=== PATIENT | female | born 1980 | race African-American/Black ===

== ENCOUNTER 2017-07-05 13:12 | Emergency (ER) | payer OTHER ==
[~2017-07-05] VITALS: Ht 165.1 cm; Wt 168.2 kg
[2017-07-05 13:34] VITALS: BP 187/105; PULSE 103; RESP 20; TEMP 98.7; O2SAT 100
[2017-07-05] MEDS ORDERED: DICL75TA PO (14:49)
[2017-07-05] MEDS ORDERED: ROBA500T PO (14:49)
--- NOTE | 2017-07-05 14:52 | PD ---
HPI Chief Complaint: Musculoskeletal Complaint Time Seen by Provider: 14:46 Travel History International Travel<30 days: No Contact w/Intl Traveler<30days: No Traveled to known affect area: No History of Present Illness HPI 37-year-old female presents for evaluation of right-sided neck/trapezius pain. Symptoms started 4 days ago. She thinks that she may have slept on her neck wrong. She reports a stiff/sharp pain in her right neck and trapezius region which radiates down the right arm with associated paresthesias in the right hand. She denies any trauma. Denies headache, blurred vision, cough, congestion, chest pain, shortness of breath, nausea, vomiting, abdominal pain. She has no other complaints at this time. [facility] Past Medical History Medical History: Denies Significant Hx ?: Not LMP: 1 week ago Dilation and Curettage (D&C): Yes (x4 from endometriosis ) Social History Alcohol Use: Yes Tobacco Use: Yes Substance Use: No Allergies-Medications (Allergen,Severity, Reaction): Coded Allergies: No Known Allergies (Unverified , 07/05/17) Reported Meds & Prescriptions Reported Meds & Active Scripts Active Robaxin (Methocarbamol) 500 Mg Tab 500 Mg PO TID [address] (Diclofenac Sodium) 75 Mg Tabdr 75 Mg PO BID 10 Days Review of Systems Except as stated in HPI: all other systems reviewed are Neg Physical Exam Narrative GENERAL: Obese female no acute distress. SKIN: Warm and dry. No bruising or soft tissue swelling, no rash. HEAD: Atraumatic. Normocephalic. EYES: Pupils equal and round. No scleral icterus. No injection or drainage. ENT: No nasal bleeding or discharge. Mucous membranes pink and moist. NECK: Trachea midline. No JVD. CARDIOVASCULAR: Regular rate and rhythm. No murmur appreciated. RESPIRATORY: No accessory muscle use. Clear to auscultation. Breath sounds equal bilaterally. GASTROINTESTINAL: Abdomen soft, non-tender, nondistended. Hepatic and splenic margins not palpable. MUSCULOSKELETAL: There is tenderness to palpation in the right cervical paravertebral musculature as well as in the right trapezius musculature. There is no edema. The patient has some limited abduction and and external rotation of the right shoulder past 75. 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 2+ radial pulse. NEUROLOGICAL: Awake and alert. No obvious cranial nerve deficits. Motor grossly within normal limits. Normal speech. Data Data Last Documented VS Vital Signs Date Time Temp Pulse Resp B/P (MAP) Pulse Ox O2 Delivery O2 Flow Rate FiO2 07/05/17 13:34 98.7 103 20 187/105 (132) 100 Orders Orders Ketorolac Inj (Toradol Inj) (07/05/17 15:00) Orphenadrine Inj (Norflex Inj) (07/05/17 15:00) Ed Discharge Order (07/05/17 14:48) [facility] Medical Decision Making Medical Screen Exam Complete: Yes Emergency Medical Condition: Yes Medical Record Reviewed: Yes Differential Diagnosis Muscle spasm, muscle strain, herniated nucleus pulposus, spinal stenosis, DVT, superior vena cava syndrome Narrative Course Examination and history are most consistent with cervical radiculopathy. The plan is to treat the patient symptomatically with a short course of NSAIDs and muscle relaxants. Recommended recheck in 2 weeks by primary care physician. Stable for discharge. Diagnosis Primary Impression: Cervical radiculopathy Additional Instructions: Medication as needed. Do not drive or drink alcohol and taking Robaxin. Take diclofenac with meals. Avoid strenuous activity or heavy lifting. Follow-up with primary care physician in 2 weeks. Return for any emergent medical conditions. Med/Other Pt SpecificInfo: Prescription(s) given Scripts Methocarbamol (Robaxin) 500 Mg Tab 500 MG PO TID for Muscle Spasm for 10 Days, TAB 0 Refills Prov: Alex Sharma MD 07/05/[address] (Diclofenac Sodium DR) 75 Mg Tabdr 75 MG PO BID for 10 Days, #20 TAB 0 Refills Prov: Alex Sharma MD 07/05/17 Disposition: 01 DISCHARGE HOME Condition: Stable Jefferson Harden Jul 05, 2017 14:52
[2017-07-05] MEDS ORDERED: KETOROLAC TROMETHAMINE 60 MG/2 ML (IM) VIAL IM ONE (15:00)
[2017-07-05] MEDS ORDERED: ORPHENADRINE INJ 60 MG/2 ML AMP IM ONE (15:00)
== END 2017-07-05 15:16 | disposition home or self-care (01) ==
LOC: NEPK 13:12
DX: M54.12 Radiculopathy, cervical region (principal); Z72.0 Tobacco use
CPT/HCPCS: 96372; 99283; J1885; J2360

== ENCOUNTER 2017-08-05 01:30 | Emergency (ER) | payer OTHER ==
[~2017-08-05 01:30] MED LIST: DICL75TA PO; ROBA500T PO
[2017-08-05 01:34] VITALS: BP 181/94; PULSE 91; RESP 20; TEMP 98.7; O2SAT 99
[2017-08-05 01:42] VITALS: BP 181/118; PULSE 86; RESP 18; O2SAT 100
[2017-08-05] MEDS ORDERED: SODIUM CHLORIDE 0.9% FLUSH 10 ML FLUSH IV FLUSH PRN (01:45)
[2017-08-05] MEDS ORDERED: KETOROLAC TROMETHAMINE 30 MG/ML (IVP) VIAL IVP ONE (01:45)
[2017-08-05] MEDS ORDERED: DICYCLOMINE HCL 20 MG/2 ML VIAL IM ONE (01:45)
[2017-08-05] MEDS ORDERED: ONDANSETRON HCL 4 MG/2 ML VIAL IVP ONE (01:45)
[2017-08-05] MEDS ORDERED: SODIUM CHLORID 0.9% 500 ML INJ 500 ML IV ONE (01:45)
[2017-08-05] MEDS ORDERED: BACL20TA PO (01:47)
[2017-08-05] MEDS ORDERED: IBUP-1129 PO (01:47)
[2017-08-05] MEDS ORDERED: AMLO5TAB2 PO (01:47)
[2017-08-05] MEDS ORDERED: LOSA25TA PO (01:47)
[2017-08-05] MEDS ORDERED: METO1TAB9 PO (01:47)
[2017-08-05] MEDS ORDERED: CLON0.1T PO (01:47)
[2017-08-05] MEDS ORDERED: FURO1TAB60 PO (01:47)
[2017-08-05] MEDS ORDERED: PROG50IN IM (01:47)
[2017-08-05 02:00] VITALS: O2SAT 98
[2017-08-05 02:12] LABS: AUTOMATED NEUTROPHIL # 12.2 TH/MM3 (1.8-7.7); BASOPHIL # 0.1 TH/MM3 (0-0.2); BASOPHIL % 0.8 % (0.0-2.0); EOSINOPHIL # 0.1 TH/MM3 (0-0.4); EOSINOPHIL % 0.6 % (0.0-4.0); HEMATOCRIT 37.6 % (35.0-46.0); HEMOGLOBIN 12.5 GM/DL (11.6-15.3); LYMPH % 11.2 % (9.0-44.0); LYMPHOCYTE # 1.7 TH/MM3 (1.0-4.8); MEAN CELL VOLUME 76.7 FL (80.0-100.0); MEAN CORPUSCULAR HEMOGLOBIN 25.5 PG (27.0-34.0); MEAN CORPUSCULAR HGB CONC 33.2 % (32.0-36.0); MEAN PLATELET VOLUME 7.5 FL (7.0-11.0); MONO % 4.6 % (0.0-8.0); MONOCYTE # 0.7 TH/MM3 (0-0.9); NEUT % 82.8 % (16.0-70.0); PLATELET COUNT 480 TH/MM3 (150-450); RED CELL DISTRIBUTION WIDTH 16.5 % (11.6-17.2); WHITE BLOOD COUNT 14.7 TH/MM3 (4.0-11.0)
[2017-08-05 02:31] LABS: ALKALINE PHOSPHATASE 82 U/L (45-117); ALT (GPT) 22 U/L (10-53); TOTAL BILIRUBIN ADULT 0.4 MG/DL (0.2-1.0); TOTAL PROTEIN 8.3 GM/DL (6.4-8.2)
[2017-08-05 02:51] LABS: ALBUMIN 3.5 GM/DL (3.4-5.0); AST (GOT) 20 U/L (15-37); BLOOD UREA NITROGEN 7 MG/DL (7-18); CHLORIDE 104 MEQ/L (98-107); CREATININE 0.59 MG/DL (0.50-1.00); GLOMERULAR FILTRATION RATE 139 ML/MIN (>89); GLUCOSE,RANDOM 122 MG/DL (74-106); SODIUM (NA) 141 MEQ/L (136-145)
[2017-08-05] MEDS ORDERED: ACETAMINOPHEN/HYDROcodone 325 MG/5 MG TAB PO ONE (03:00)
[2017-08-05 03:27] LABS: BILIRUBIN, URINE NEG (NEG); BLOOD, URINE MOD (NEG); GLUCOSE,URINE NEG (NEG); KETONE, URINE TRACE mg/dL (NEG); MUCUS URINE FEW /lpf (OCC); NITRITE,URINE NEG (NEG); PH, URINE 7.5 (5.0-8.5); SQUAMOUS EPITHELIAL CELL URINE 4 /hpf (0-5); TRICHOMONAS, URINE RARE; URINE LEUKOCYTE ESTERASE MOD (NEG)
[2017-08-05 03:28] LABS: URINE COLOR LIGHT-RED (YELLW/STRAW)
[2017-08-05] MEDS ORDERED: ZOFR4TAB3 SL (04:09)
[2017-08-05] MEDS ORDERED: NORC5TAB PO (04:09)
--- NOTE | 2017-08-05 04:09 | PD ---
HPI Chief Complaint: Abdominal Pain Time Seen by Provider: 01:45 Travel History International Travel<30 days: No Contact w/Intl Traveler<30days: No Traveled to known affect area: No History of Present Illness HPI Patient is a 37 year old female who comes in complaining of abdominal cramping and vomiting. She says she has history of endometriosis and says she has had these symptoms in the past related to it. She says she has been on Progesterone and that has been helping her, so she hasn't had these symptoms in a while. She tried taking Ibuprofen at home and muscle relaxers with no relief of her symptoms. She denies urinary symptoms. She reports normal bowel movements. Severity is moderate. PFSH Past Medical History Diminished Hearing: No Hypertension: Yes Medical other: Yes (ENDOMETRIOSIS) Immunizations Current: Yes ?: Not Dilation and Curettage (D&C): Yes (x4 from endometriosis ) Social History Alcohol Use: Yes Tobacco Use: No Substance Use: No Allergies-Medications (Allergen,Severity, Reaction): Coded Allergies: No Known Allergies (Unverified , 08/05/17) Reported Meds & Prescriptions Reported Meds & Active Scripts Active Reported Metoprolol Succinate ER 24 HR (Metoprolol Succinate) 50 Mg Tab 50 Mg PO DAILY Motrin Ib (Ibuprofen) 200 Mg Tablet 600 Mg PO TID Baclofen 20 Mg Tab 20 Mg PO HS Lasix (Furosemide) 40 Mg Tab 40 Mg PO DAILY Progesterone Inj (Progesterone) 50 Mg/Ml Inj 20 Mg IM DAILY Losartan (Losartan Potassium) 25 Mg Tab 50 Mg PO DAILY Clonidine (Clonidine HCl) 0.1 Mg Tab 0.1 Mg PO BID Amlodipine (Amlodipine Besylate) 5 Mg Tab 5 Mg PO DAILY Review of Systems Except as stated in HPI: all other systems reviewed are Neg General / Constitutional: No: Fever, Chills HENT: No: Headaches, Lightheadedness Cardiovascular: No: Chest Pain or Discomfort Respiratory: No: Shortness of Breath Gastrointestinal: Positive: Nausea, Vomiting, Abdominal Pain Genitourinary: Positive: Vaginal Bleeding Musculoskeletal: No: Myalgias Skin: No Rash, No Change in Pigmentation Neurologic: No: Weakness, Dizziness Physical Exam Narrative GENERAL: Awake and alert, in no acute distress. SKIN: Focused skin assessment warm/dry. No wounds or signs of infection. HEAD: Atraumatic. Normocephalic. EYES: Pupils equal and round. No scleral icterus. ENT: Mucous membranes pink and moist. NECK: Trachea midline. No JVD. CARDIOVASCULAR: Regular rate and rhythm. No murmur appreciated. RESPIRATORY: No accessory muscle use. Clear to auscultation. Breath sounds equal bilaterally. GASTROINTESTINAL: Abdomen soft, nondistended. Mild tenderness to the lower abdomen. No rebound or guarding. MUSCULOSKELETAL: No obvious deformities. No clubbing. No cyanosis. No edema. NEUROLOGICAL: Awake and alert. No obvious cranial nerve deficits. Motor grossly within normal limits. Normal speech. PSYCHIATRIC: Appropriate mood and affect; insight and judgment normal. Data Data Last Documented VS Vital Signs Date Time Temp Pulse Resp B/P (MAP) Pulse Ox O2 Delivery O2 Flow Rate FiO2 08/05/17 02:00 98 Room Air 08/05/17 01:42 86 18 08/05/17 01:34 98.7 Orders Orders Complete Blood Count With Diff (08/05/17 01:45) Comprehensive Metabolic Panel (08/05/17 01:45) Urinalysis - C+S If Indicated (08/05/17 01:45) Iv Access Insert/Monitor (08/05/17 01:45) Ecg Monitoring (08/05/17 01:45) Oximetry (08/05/17 01:45) Ondansetron Inj (Zofran Inj) (08/05/17 01:45) Sodium Chloride 0.9% Flush (Ns Flush) (08/05/17 01:45) Ketorolac Inj (Toradol Inj) (08/05/17 01:45) Ed Urine Pregnancytest Poc (08/05/17 01:45) Sodium Chlorid 0.9% 500 Ml Inj (Ns 500 M (08/05/17 01:45) Dicyclomine Inj (Bentyl Inj) (08/05/17 01:45) Acetamin-Hydrocod 325-5 Mg ([place] 5-325 (08/05/17 03:00) Urine Culture (08/05/17 02:50) Labs Laboratory Tests Test 08/05/17 02:00 08/05/17 02:50 White Blood Count 14.7 TH/MM3 Red Blood Count 4.90 MIL/MM3 Hemoglobin 12.5 GM/DL Hematocrit 37.6 % Mean Corpuscular Volume 76.7 FL Mean Corpuscular Hemoglobin 25.5 PG Mean Corpuscular Hemoglobin Concent 33.2 % Red Cell Distribution Width 16.5 % Platelet Count 480 TH/MM3 Mean Platelet Volume 7.5 FL Neutrophils (%) (Auto) 82.8 % Lymphocytes (%) (Auto) 11.2 % Monocytes (%) (Auto) 4.6 % Eosinophils (%) (Auto) 0.6 % Basophils (%) (Auto) 0.8 % Neutrophils # (Auto) 12.2 TH/MM3 Lymphocytes # (Auto) 1.7 TH/MM3 Monocytes # (Auto) 0.7 TH/MM3 Eosinophils # (Auto) 0.1 TH/MM3 Basophils # (Auto) 0.1 TH/MM3 CBC Comment DIFF FINAL Differential Comment Blood Urea Nitrogen 7 MG/DL Creatinine 0.59 MG/DL Random Glucose 122 MG/DL Total Protein 8.3 GM/DL Albumin 3.5 GM/DL Calcium Level 9.0 MG/DL Alkaline Phosphatase 82 U/L Aspartate Amino Transf (AST/SGOT) 20 U/L Alanine Aminotransferase (ALT/SGPT) 22 U/L Total Bilirubin 0.4 MG/DL Sodium Level 141 MEQ/L Potassium Level 3.5 MEQ/L Chloride Level 104 MEQ/L Carbon Dioxide Level 28.0 MEQ/L Anion Gap 9 MEQ/L Estimat Glomerular Filtration Rate 139 ML/MIN Urine Color LIGHT-RED Urine Turbidity HAZY Urine pH 7.5 Urine Specific [place] 1.014 Urine Protein 30 mg/dL Urine Glucose (UA) NEG mg/dL Urine Ketones TRACE mg/dL Urine Occult Blood MOD Urine Nitrite NEG Urine Bilirubin NEG Urine Urobilinogen LESS THAN 2.0 MG/DL Urine Leukocyte Esterase MOD Urine RBC /hpf Urine WBC 37 /hpf Urine Squamous Epithelial Cells 4 /hpf Urine Mucus FEW /lpf Urine Trichomonas RARE Microscopic Urinalysis Comment CULTURE INDICATED MDM Medical Decision Making Medical Screen Exam Complete: Yes Emergency Medical Condition: Yes Medical Record Reviewed: Yes Differential Diagnosis UTI vs menstrual cramps vs dehydration Narrative Course Patient is a 37 year old female who comes in complaining of abdominal pain with nausea and vomiting. Exam shows tenderness to the lower abdomen. IV established, labs sent. Labs show a WBC count of 14.7, no other abnormalities. Trichomonas seen in the urine. Given IVF, Toradol, Zofran, Bentyl. She continued to have pain, given [place]. She felt better after the [place]. Given Flagyl and advised to have her sexual partner treated. Discharged with prescriptions for Zofran and [place]. Advised to follow up with her rag washer. Advised to return any time for any worsening symptoms. Diagnosis Primary Impression: Dysmenorrhea Additional Impression: Trichomoniasis Patient Instructions: Dysmenorrhea (ED), General Instructions, Trichomoniasis ( ED) Additional Instructions: Drink plenty of fluids. Take pain medicine as needed. Take Zofran for nausea. Follow up with a rag washer. Return to the ED as needed for any worsening symptoms. Scripts Hydrocodone-Acetaminophen ([place]) 5 Mg-325 Mg Tab 1 TAB PO Q6H Y for PAIN, #10 TAB 0 Refills Prov: Cynthia Canada MD 08/05/17 Ondansetron Odt (Zofran Odt) 4 Mg Tab 4 MG SL Q6HR Y for Nausea/Vomiting, #12 TAB 0 Refills Prov: Cynthia Canada MD 08/05/17 Disposition: 01 DISCHARGE HOME Condition: Stable Cynthia Canada MD August 05, 2017 04:09
[2017-08-05] MEDS ORDERED: ONDANSETRON HCL 4 MG/2 ML VIAL IV PUSH ONE (04:15)
[2017-08-05] MEDS ORDERED: metroNIDAZOLE 500 MG TAB PO ONE (04:15)
[2017-08-05 04:34] VITALS: BP 175/90
== END 2017-08-05 04:35 | disposition home or self-care (01) ==
LOC: NEPE 01:30
DX: N94.6 Dysmenorrhea, unspecified (principal); A59.9 Trichomoniasis, unspecified; I10 Essential (primary) hypertension
CPT/HCPCS: 80053; 81001; 84703; 85025; 87086; 96361; 96372; 96374; 96375; 99284; J0500; J1885; J2405; J7040